=== PATIENT | female | born 1945 | race Two or more races ===

== ENCOUNTER 2024-06-06 10:14 | Outpatient (AMB) | payer OTHER, SELFPAY ==
--- NOTE | 2024-06-06 10:35 | GSCOFFNT_ITS ---
[facility] 06/06/24 10:36 Height 1.6 m Height Method Stated Weight 52.815 kg Weight Measurement Method Standing Scale BMI 20.6 BP 114/67 Blood Pressure Source Automatic Cuff Blood Pressure Location Right Upper Arm Position Sitting Respiration 18 Pulse 78 Pulse Source Monitor Temp 96.9 F Temp Source Temporal Artery Scan Pulse Oximetry (%) 96 Oxygen Delivery Method Room Air Med/Allergies Allergies & Medications Allergies No Known Allergies Allergy (Verified 06/06/24 10:37) Medication Reconciliation loratadine 10 mg tablet 10 mg PO QDAY 01/20/18 [History Confirmed 06/06/24] acetaminophen 500 mg tablet (Tylenol Extra Strength) 500 mg PO TID 11/06/20 [History Confirmed 06/06/24] calcium 600 mg (as carbonate)-vitamin D3 10 mcg (400 unit) tablet (Calcium 600 + D(3)) 1 tab PO BID 02/02/24 [History Confirmed 06/06/24] latanoprost 0.005 % eye drops 1 drp ophthalmic (eye) HS 02/02/24 [History Confirmed 06/06/24] timolol maleate 0.5 % eye drops 1 drp ophthalmic (eye) DAILY 02/02/24 [History Confirmed 06/06/24] docusate sodium 100 mg capsule (Colace) 100 mg PO QDAY PRN constipation #30 caps 02/03/24 [Rx Confirmed 06/06/24] oxycodone-acetaminophen 5 mg-325 mg tablet (Endocet) 1 tab PO Q6H PRN pain #30 tabs 02/03/24 [Rx Confirmed 06/06/24] docusate sodium 50 mg capsule 50 mg PO BID PRN constipation #30 caps 03/22/24 [Rx Confirmed 06/06/24] hydrocortisone acetate 25 mg rectal suppository 25 mg [place] QHS #24 ea 06/06/24 [Rx] [place] Intake Visit Data Collection New Patient or Established: Established Patient (seen at [facility] within 3 years) Reason for Visit:: FOLLOW UP Pain Present Currently: No Pain Scale Used: Tor/Numerical Bunker Worker Required: No PCP or OBGYN visit in last 3 months: Yes Hx Now: No Do You Feel Safe at Home: Yes Authorities Contacted: N/A Smoking Status Smoking Status: Never smoker Immunization / Flu Flu Vaccine in the Last 12 Months: Yes Flu Vaccine Exclusion Criteria: Already Received Past Medical History Past Medical History NEUROLOGIC: Negative Neurological Disorders or Seizures CARDIAC: Positive Cardiac Disorders, Hypercholesterolemia (pt was prescribed meds but not taking them) and Hypotension (INTERMITTENT); Negative Congestive Heart Failure RESPIRATORY: Negative Chronic Obstructive Pulmonary Disease (COPD) GASTROINTESTINAL: Positive Gastrointestinal Disorders, Hemorrhoids and Gastroesophageal Reflux Disease (BLOATING) GENITOURINARY: Negative Genitourinary Disorders or Renal Disease REPRODUCTIVE: Negative Previous Pregnancies MUSCULOSKELETAL: Positive Osteoporosis ENT: Positive Cataracts (bilateral) and Glaucoma ENDOCRINE: Negative Endocrine Disorders, Diabetes Mellitus Type 1 or Diabetes Mellitus Type 2 HEMATOLOGIC: Negative Blood Disorders OTHER HISTORY: Positive Falls, Chicken Pox, Measles and Mumps; Negative Hospitalization, Autoimmune Disease, Shingles, Blood Transfusions, Blood Transfusion Reaction, Anesthesia Reactions or Cancer Family History FAMILY HISTORY: Positive Family Cancer and Family Surgery; Negative Family Psychiatric Problems, Family Respiratory Disorders, Family Cardiac Disorders, Family Gastrointestinal Problems or Family Anesthesia Reaction Social History SMOKING STATUS: Smoking status: Never smoker SECOND HAND EXPOSURE: second hand exposure: No ALCOHOL: Alcohol Intake: Never HOUSING: Housing: House HPI HPI Narrative 79F referred for bleeding internal hemorrhoids s/p THD 02/02 here for planned follow up. Pt reports feeling well with no pain, however she continues to have intermittent episodes of bleeding. She still feels it is better than before surgery but is having to wear pantiliners in case the bleeding occurs. She denies any constipatio or diarrhea, is using preparation H suppositories regularly ROS Review of Systems Systems Reviewed: All systems reviewed, normal except as documented Objective/Exam General General Appearance: alert, cooperative and well groomed Resp Respiratory exam: Absent respiratory distress Assessment & Plan Diagnosis / Problem List (1) Internal hemorrhoids with complication: Status: Acute Assessment & Plan: 79F referred for bleeding internal hemorrhoids s/p THD 02/02 here for planned follow up, with mild ongoing bleeding Plan: Hydrocortisone suppositories F/u in 1 month Advanced Care Planning Advance care planning discussed with:: patient Office Procedures GNS Level of Care Nursing/Assessment Patient Status: Established Patient Nursing Assessment/Reassesment: Medication Reconciliation, Update PMH in EMR and Vital Signs Coordination of Care: Complex Care and Chronic Disease 1-5, Education Complex Pt/Fam, Consent,records obtained, informed consent, Results/Orders obtained and Staff clarify orders Established Patient Charge Established Patient Point Assignment: 95 Established Patient Point Charge: Level 3 (33-115) Patient Portal Questionaires Social History Living Situation History Housing: House Tobacco History Smoking Status: Never smoker Second Hand Smoke Exposure: No Alcohol History Alcohol Intake: Never Domestic Abuse History Do You Feel Safe at Home: Yes Review of Systems Report any current symptoms Only answer those that you have currently: Past Medical History Past Medical History Have you ever been diagnosed with any of the following: Neurological Problems Seizures: No Cardiology Problems Hypercholesterolemia: Yes (pt was prescribed meds but not taking them) Congestive Heart Failure: No Hypotension: Yes (INTERMITTENT) Respiratory Problems Chronic Obstructive Pulmonary Disease (COPD): No Stomache/Intestinal Problems Hemorrhoids: Yes Gastroesophageal Reflux Disease: Yes (BLOATING) Genital/Urinary Problems Renal Disease: No Reproductive Problems Previous Pregnancies: No Musculoskeletal Problems Osteoporosis: Yes Head,Eye,Nose,Throat Problems Cataracts: Yes (bilateral) Glaucoma: Yes Endocrine Problems Diabetes Mellitus Type 1: No Diabetes Mellitus Type 2: No Other Problems Hospitalization: No Autoimmune Disease: No Shingles: No Falls: Yes Blood Transfusions: No Blood Transfusion Reaction: No Anesthesia Reactions: No Chicken Pox: Yes Measles: Yes Mumps: Yes Cancer: No
[2024-06-06 10:36] VITALS: BP 114/67; PULSE 78; RESP 18; TEMP 36.1; O2SAT 96; BMI 20.6
== END 2024-06-06 11:18 | disposition home or self-care (01) ==
PROVIDERS: PCP Family Medicine; Referring Provider Family Medicine; Supervising Provider Surgery; Visit Provider Surgery
DX: Z48.815 Encounter for surgical aftercare following surgery on the digestive system (principal)
CPT/HCPCS: 99213; G0463

== ENCOUNTER 2024-07-06 14:34 | Outpatient (AMB) | payer OTHER, SELFPAY ==
[2024-07-06 14:51] VITALS: BP 132/69; PULSE 77; RESP 18; TEMP 36.4; O2SAT 98; BMI 20.6
--- NOTE | 2024-07-06 14:51 | GSCOFFNT_ITS ---
[facility] 07/06/24 14:51 Height 1.6 m Height Method Stated Weight 52.787 kg Weight Measurement Method Standing Scale BMI 20.6 BP 132/69 H Blood Pressure Source Automatic Cuff Blood Pressure Location Right Upper Arm Position Sitting Respiration 18 Pulse 77 Pulse Source Monitor Temp 97.5 F Temp Source Temporal Artery Scan Pulse Oximetry (%) 98 Oxygen Delivery Method Room Air Med/Allergies Allergies & Medications Allergies No Known Allergies Allergy (Verified 07/06/24 14:52) Medication Reconciliation loratadine 10 mg tablet 10 mg PO QDAY 01/20/18 [History Confirmed 07/06/24] acetaminophen 500 mg tablet (Tylenol Extra Strength) 500 mg PO TID 11/06/20 [History Confirmed 07/06/24] calcium 600 mg (as carbonate)-vitamin D3 10 mcg (400 unit) tablet (Calcium 600 + D(3)) 1 tab PO BID 02/02/24 [History Confirmed 07/06/24] latanoprost 0.005 % eye drops 1 drp ophthalmic (eye) HS 02/02/24 [History Confirmed 07/06/24] timolol maleate 0.5 % eye drops 1 drp ophthalmic (eye) DAILY 02/02/24 [History Confirmed 07/06/24] docusate sodium 100 mg capsule (Colace) 100 mg PO QDAY PRN constipation #30 caps 02/03/24 [Rx Confirmed 07/06/24] oxycodone-acetaminophen 5 mg-325 mg tablet (Endocet) 1 tab PO Q6H PRN pain #30 tabs 02/03/24 [Rx Confirmed 07/06/24] docusate sodium 50 mg capsule 50 mg PO BID PRN constipation #30 caps 03/22/24 [Rx Confirmed 07/06/24] phenylephrine 0.25 %-mineral oil 14 %-petrolatm 74.9 % rectal ointment (Hemorrhoidal(phenyleph-min oil-petrolat)) 1 applic NM QAM #56 grams 06/08/24 [Rx Confirmed 07/06/24] hydrocortisone acetate 25 mg rectal suppository 25 mg [place] QHS #24 ea 07/06/24 [Rx] [place] Intake Visit Data Collection New Patient or Established: Established Patient (seen at [facility] within 3 years) Reason for Visit:: FOLLOW UP Pain Present Currently: No Pain Scale Used: Goodwin-Brooks/Numerical Student Loan Counselor Required: No PCP or OBGYN visit in last 3 months: Yes Hx Now: No Do You Feel Safe at Home: Yes Authorities Contacted: N/A Smoking Status Smoking Status: Never smoker Immunization / Flu Flu Vaccine in the Last 12 Months: Yes Flu Vaccine Exclusion Criteria: Already Received Past Medical History Past Medical History NEUROLOGIC: Negative Neurological Disorders or Seizures CARDIAC: Positive Cardiac Disorders, Hypercholesterolemia (pt was prescribed meds but not taking them) and Hypotension (INTERMITTENT); Negative Congestive Heart Failure RESPIRATORY: Negative Chronic Obstructive Pulmonary Disease (COPD) GASTROINTESTINAL: Positive Gastrointestinal Disorders, Hemorrhoids and Gastroesophageal Reflux Disease (BLOATING) GENITOURINARY: Negative Genitourinary Disorders or Renal Disease REPRODUCTIVE: Negative Previous Pregnancies MUSCULOSKELETAL: Positive Osteoporosis ENT: Positive Cataracts (bilateral) and Glaucoma ENDOCRINE: Negative Endocrine Disorders, Diabetes Mellitus Type 1 or Diabetes Mellitus Type 2 HEMATOLOGIC: Negative Blood Disorders OTHER HISTORY: Positive Falls, Chicken Pox, Measles and Mumps; Negative Hospitalization, Autoimmune Disease, Shingles, Blood Transfusions, Blood Transfusion Reaction, Anesthesia Reactions or Cancer Family History FAMILY HISTORY: Positive Family Cancer and Family Surgery; Negative Family Psychiatric Problems, Family Respiratory Disorders, Family Cardiac Disorders, Family Gastrointestinal Problems or Family Anesthesia Reaction Social History SMOKING STATUS: Smoking status: Never smoker SECOND HAND EXPOSURE: second hand exposure: No ALCOHOL: Alcohol Intake: Never HOUSING: Housing: House HPI HPI Narrative 79F referred for bleeding internal hemorrhoids s/p D 02/02 here for planned follow up. Pt reports she is still having mild intermittent rectal bleeding although it is better compared to before surgery. She is a bit overwhelmed at the moment caring for her who is 89 ROS Review of Systems Systems Reviewed: All systems reviewed, normal except as documented Objective/Exam General General Appearance: alert, cooperative and well groomed Resp Respiratory exam: Absent respiratory distress Assessment & Plan Diagnosis / Problem List (1) Internal hemorrhoids with complication: Status: Acute Assessment & Plan: 79F referred for bleeding internal hemorrhoids s/p THD 02/02 here for planned follow up, recovering well overall Plan: Suppository rx F/u in 4 weeks Advanced Care Planning Advance care planning discussed with:: patient Office Procedures GNS Level of Care Nursing/Assessment Patient Status: Established Patient Nursing Assessment/Reassesment: Medication Reconciliation, Update PMH in EMR and Vital Signs Coordination of Care: Complex Care and Chronic Disease 1-5, Education Complex Pt/Fam, Consent,records obtained, informed consent, Results/Orders obtained and Staff clarify orders Established Patient Charge Established Patient Point Assignment: 95 Established Patient Point Charge: EP Level 3 (80-115) Patient Portal Questionaires Social History Living Situation History Housing: House Tobacco History Smoking Status: Never smoker Second Hand Smoke Exposure: No Alcohol History Alcohol Intake: Never Domestic Abuse History Do You Feel Safe at Home: Yes Review of Systems Report any current symptoms Only answer those that you have currently: Past Medical History Past Medical History Have you ever been diagnosed with any of the following: Neurological Problems Seizures: No Cardiology Problems Hypercholesterolemia: Yes (pt was prescribed meds but not taking them) Congestive Heart Failure: No Hypotension: Yes (INTERMITTENT) Respiratory Problems Chronic Obstructive Pulmonary Disease (COPD): No Stomache/Intestinal Problems Hemorrhoids: Yes Gastroesophageal Reflux Disease: Yes (BLOATING) Genital/Urinary Problems Renal Disease: No Reproductive Problems Previous Pregnancies: No Musculoskeletal Problems Osteoporosis: Yes Head,Eye,Nose,Throat Problems Cataracts: Yes (bilateral) Glaucoma: Yes Endocrine Problems Diabetes Mellitus Type 1: No Diabetes Mellitus Type 2: No Other Problems Hospitalization: No Autoimmune Disease: No Shingles: No Falls: Yes Blood Transfusions: No Blood Transfusion Reaction: No Anesthesia Reactions: No Chicken Pox: Yes Measles: Yes Mumps: Yes Cancer: No
== END 2024-07-06 15:19 | disposition home or self-care (01) ==
LOC: HODSRG 14:34
PROVIDERS: PCP Family Medicine; Referring Provider Family Medicine; Supervising Provider Surgery; Visit Provider Surgery
DX: Z48.815 Encounter for surgical aftercare following surgery on the digestive system (principal)
CPT/HCPCS: 99213; G0463

== ENCOUNTER 2024-08-08 10:55 | Outpatient (AMB) | payer OTHER, SELFPAY ==
[2024-08-08 11:16] VITALS: BP 114/74; PULSE 71; RESP 16; TEMP 36.2; O2SAT 95; BMI 21.7
--- NOTE | 2024-08-08 11:16 | PD.GSCLVISIT ---
[facility] Sign[facility] - [facility] 08/08/24 11:16 Height 1.6 m Height Method Stated Weight 55.508 kg Weight Measurement Method Standing Scale BMI 21.7 BP 114/74 Blood Pressure Source Automatic Cuff Blood Pressure Location Right Upper Arm Position Sitting Respiration 16 Pulse 71 Pulse Source Monitor Temp 97.2 F Temp Source Temporal Artery Scan Pulse Oximetry (%) 95 Oxygen Delivery Method Room Air Med/Allergies Allergies & Medications Allergies No Known Allergies Allergy (Verified 07/06/24 14:52) [place] Intake Visit Data Collection New Patient or Established: Established Patient (seen at [facility] within 3 years) Seen by Clinical Staff ONLY (RN/MA): No Reason for Visit:: HEMORRHOIDS F/U Pain Present Currently: Yes Pain Location: Hip (RT) Pain scale:: 3 Pain Scale Used: Goodwin-Brooks/Numerical Core Measures Abstractor Required: No PCP or OBGYN visit in last 3 months: Yes Smoking Status Smoking Status: Never smoker Immunization / Flu Flu Vaccine in the Last 12 Months: Yes Flu Vaccine Exclusion Criteria: Already Received Past Medical History Past Medical History NEUROLOGIC: Negative Neurological Disorders or Seizures CARDIAC: Positive Cardiac Disorders, Hypercholesterolemia (pt was prescribed meds but not taking them) and Hypotension (INTERMITTENT); Negative Congestive Heart Failure RESPIRATORY: Negative Chronic Obstructive Pulmonary Disease (COPD) GASTROINTESTINAL: Positive Gastrointestinal Disorders, Hemorrhoids and Gastroesophageal Reflux Disease (BLOATING) GENITOURINARY: Negative Genitourinary Disorders or Renal Disease REPRODUCTIVE: Negative Previous Pregnancies MUSCULOSKELETAL: Positive Osteoporosis ENT: Positive Cataracts (bilateral) and Glaucoma ENDOCRINE: Negative Endocrine Disorders, Diabetes Mellitus Type 1 or Diabetes Mellitus Type 2 HEMATOLOGIC: Negative Blood Disorders OTHER HISTORY: Positive Falls, Chicken Pox, Measles and Mumps; Negative Hospitalization, Autoimmune Disease, Shingles, Blood Transfusions, Blood Transfusion Reaction, Anesthesia Reactions or Cancer Family History FAMILY HISTORY: Positive Family Cancer and Family Surgery; Negative Family Psychiatric Problems, Family Respiratory Disorders, Family Cardiac Disorders, Family Gastrointestinal Problems or Family Anesthesia Reaction Social History SMOKING STATUS: Smoking status: Never smoker SECOND HAND EXPOSURE: second hand exposure: No ALCOHOL: Alcohol Intake: Never HOUSING: Housing: House HPI HPI Narrative 79F referred for bleeding internal hemorrhoids s/p THD 02/02 here for planned follow up. Pt reports she is still having intermittent rectal bleeding, it was a fair amount on Aug 02 but overall she still feels better than before surgery and does not want to consider repeat surgery ROS Review of Systems Systems Reviewed: All systems reviewed, normal except as documented Objective/Exam General General Appearance: alert, cooperative and well groomed Resp Respiratory exam: Absent respiratory distress Assessment & Plan Diagnosis / Problem List (1) Internal hemorrhoids with complication: Status: Acute Assessment & Plan: 79F referred for bleeding internal hemorrhoids s/p THD 02/02 here for planned follow up, recovering well overall Advanced Care Planning Advance care planning discussed with:: other Office Procedures GNS Level of Care Nursing/Assessment Patient Status: Established Patient Nursing Assessment/Reassesment: Medication Reconciliation, Update PMH in EMR and Vital Signs Coordination of Care: Complex Care and Chronic Disease 1-5, Education Complex Pt/Fam, 1 Ins Authorization and Staff clarify orders Established Patient Charge Established Patient Point Assignment: 100 Established Patient Point Charge: EP Level 3 (80-115) Patient Portal Questionaires Social History Living Situation History Housing: House Tobacco History Smoking Status: Never smoker Second Hand Smoke Exposure: No Alcohol History Alcohol Intake: Never Review of Systems Report any current symptoms Only answer those that you have currently: Past Medical History Past Medical History Have you ever been diagnosed with any of the following: Neurological Problems Seizures: No Cardiology Problems Hypercholesterolemia: Yes (pt was prescribed meds but not taking them) Congestive Heart Failure: No Hypotension: Yes (INTERMITTENT) Respiratory Problems Chronic Obstructive Pulmonary Disease (COPD): No Stomache/Intestinal Problems Hemorrhoids: Yes Gastroesophageal Reflux Disease: Yes (BLOATING) Genital/Urinary Problems Renal Disease: No Reproductive Problems Previous Pregnancies: No Musculoskeletal Problems Osteoporosis: Yes Head,Eye,Nose,Throat Problems Cataracts: Yes (bilateral) Glaucoma: Yes Endocrine Problems Diabetes Mellitus Type 1: No Diabetes Mellitus Type 2: No Other Problems Hospitalization: No Autoimmune Disease: No Shingles: No Falls: Yes Blood Transfusions: No Blood Transfusion Reaction: No Anesthesia Reactions: No Chicken Pox: Yes Measles: Yes Mumps: Yes Cancer: No
== END 2024-08-08 12:02 | disposition home or self-care (01) ==
LOC: HODSRG 10:55
PROVIDERS: PCP Family Medicine; Referring Provider Family Medicine; Supervising Provider Surgery; Visit Provider Surgery
DX: Z48.815 Encounter for surgical aftercare following surgery on the digestive system (principal)
CPT/HCPCS: 99213; G0463

== ENCOUNTER → 2024-09-07 | Outpatient (CLI) | payer OTHER, SELFPAY ==
--- NOTE | 2024-09-07 | XR_ITS ---
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
== END | disposition home or self-care (01) ==
LOC: CDIM 11:39
PROVIDERS: PCP Family Medicine; Referring Provider Family Medicine; Visit Provider Family Medicine
DX: Z13.820 Encounter for screening for osteoporosis (principal); M25.551 Pain in right hip
CPT/HCPCS: 73502

== ENCOUNTER 2024-09-08 14:13 | Outpatient (AMB) | payer OTHER, SELFPAY ==
[2024-09-08 14:34] VITALS: BP 113/68; PULSE 77; RESP 19; TEMP 36.4; O2SAT 98; BMI 21.1
--- NOTE | 2024-09-08 14:34 | GSCOFFNT_ITS ---
Vital Signs - [facility] 09/08/24 14:34 Height 1.6 m Height Method Stated Weight 54.063 kg Weight Measurement Method Standing Scale BMI 21.1 BP 113/68 Blood Pressure Source Automatic Cuff Blood Pressure Location Left Upper Arm Position Sitting Respiration 19 Pulse 77 Pulse Source Monitor Temp 97.5 F Temp Source Temporal Artery Scan Pulse Oximetry (%) 98 Oxygen Delivery Method Room Air Med/Allergies Allergies & Medications Allergies No Known Allergies Allergy (Verified 09/08/24 14:34) Medication Reconciliation loratadine 10 mg tablet 10 mg PO QDAY 01/20/18 [History Confirmed 09/08/24] acetaminophen 500 mg tablet (Tylenol Extra Strength) 500 mg PO TID 11/06/20 [History Confirmed 09/08/24] calcium 600 mg (as carbonate)-vitamin D3 10 mcg (400 unit) tablet (Calcium 600 + D(3)) 1 tab PO BID 02/02/24 [History Confirmed 09/08/24] latanoprost 0.005 % eye drops 1 drp ophthalmic (eye) HS 02/02/24 [History Confirmed 09/08/24] timolol maleate 0.5 % eye drops 1 drp ophthalmic (eye) DAILY 02/02/24 [History Confirmed 09/08/24] oxycodone-acetaminophen 5 mg-325 mg tablet (Endocet) 1 tab PO Q6H PRN pain #30 tabs 02/03/24 [Rx Confirmed 09/08/24] docusate sodium 50 mg capsule 50 mg PO BID PRN constipation #30 caps 03/22/24 [Rx Confirmed 09/08/24] phenylephrine 0.25 %-mineral oil 14 %-petrolatm 74.9 % rectal ointment (Hemorrhoidal(phenyleph-min oil-petrolat)) 1 applic [place] QAM #56 grams 06/08/24 [Rx Confirmed 09/08/24] hydrocortisone acetate 25 mg rectal suppository 25 mg [place] QHS #24 ea 07/06/24 [Rx Confirmed 09/08/24] docusate sodium 100 mg capsule (Colace) 100 mg PO QDAY PRN constipation #30 caps 09/06/24 [Rx Confirmed 09/08/24] [place] Intake Visit Data Collection New Patient or Established: Established Patient (seen at [facility] within 3 years) Seen by Clinical Staff ONLY (RN/MA): No Reason for Visit:: FOLLOW UP Pain Present Currently: No Special Education Resource Room Teacher Required: No PCP or OBGYN visit in last 3 months: Yes Hx Now: No Do You Feel Safe at Home: Yes Authorities Contacted: N/A Smoking Status Smoking Status: Never smoker Immunization / Flu Flu Vaccine in the Last 12 Months: No Flu Vaccine Exclusion Criteria: No Exclusion Criteria Past Medical History Past Medical History NEUROLOGIC: Negative Neurological Disorders or Seizures CARDIAC: Positive Cardiac Disorders, Hypercholesterolemia (pt was prescribed med s but not taking them) and Hypotension (INTERMITTENT); Negative Congestive Heart Failure RESPIRATORY: Negative Chronic Obstructive Pulmonary Disease (COPD) GASTROINTESTINAL: Positive Gastrointestinal Disorders, Hemorrhoids and Gastroesophageal Reflux Disease (BLOATING) GENITOURINARY: Negative Genitourinary Disorders or Renal Disease REPRODUCTIVE: Negative Previous Pregnancies MUSCULOSKELETAL: Positive Osteoporosis ENT: Positive Cataracts (bilateral) and Glaucoma ENDOCRINE: Negative Endocrine Disorders, Diabetes Mellitus Type 1 or Diabetes Mellitus Type 2 HEMATOLOGIC: Negative Blood Disorders OTHER HISTORY: Positive Falls, Chicken Pox, Measles and Mumps; Negative Hospitalization, Autoimmune Disease, Shingles, Blood Transfusions, Blood Transfusion Reaction, Anesthesia Reactions or Cancer Family History FAMILY HISTORY: Positive Family Cancer and Family Surgery; Negative Family Psychiatric Problems, Family Respiratory Disorders, Family Cardiac Disorders, Family Gastrointestinal Problems or Family Anesthesia Reaction Social History SMOKING STATUS: Smoking status: Never smoker SECOND HAND EXPOSURE: second hand exposure: No ALCOHOL: Alcohol Intake: Never HOUSING: Housing: House HPI HPI Narrative 79F referred for bleeding internal hemorrhoids s/p D 02/02 here for planned follow up. Pt reports having minimal bleeding, no concerns at the moment ROS Review of Systems Systems Reviewed: All systems reviewed, normal except as documented Objective/Exam General General Appearance: alert, cooperative and well groomed Resp Respiratory exam: Absent respiratory distress Assessment & Plan Diagnosis / Problem List (1) Internal hemorrhoids with complication: Status: Acute Assessment & Plan: 79F referred for bleeding internal hemorrhoids s/p D 02/02 here for planned follow up, recovering well overall Advanced Care Planning Advance care planning discussed with:: patient Office Procedures GNS Level of Care Nursing/Assessment Patient Status: Established Patient Nursing Assessment/Reassesment: Medication Reconciliation, Update PMH in EMR and Vital Signs Coordination of Care: Complex Care and Chronic Disease 1-5, Consent,records obtained, informed consent, Education Simp Pt/Fam, Results/Orders obtained and Staff clarify orders Established Patient Charge Established Patient Point Assignment: 90 Established Patient Point Charge: Level 3 (80-115) Patient Portal Questionaires Social History Living Situation History Housing: House Tobacco History Smoking Status: Never smoker Second Hand Smoke Exposure: No Alcohol History Alcohol Intake: Never Domestic Abuse History Do You Feel Safe at Home: Yes Review of Systems Report any current symptoms Only answer those that you have currently: Past Medical History Past Medical History Have you ever been diagnosed with any of the following: Neurological Problems Seizures: No Cardiology Problems Hypercholesterolemia: Yes (pt was prescribed meds but not taking them) Congestive Heart Failure: No Hypotension: Yes (INTERMITTENT) Respiratory Problems Chronic Obstructive Pulmonary Disease (COPD): No Stomache/Intestinal Problems Hemorrhoids: Yes Gastroesophageal Reflux Disease: Yes (BLOATING) Genital/Urinary Problems Renal Disease: No Reproductive Problems Previous Pregnancies: No Musculoskeletal Problems Osteoporosis: Yes Head,Eye,Nose,Throat Problems Cataracts: Yes (bilateral) Glaucoma: Yes Endocrine Problems Diabetes Mellitus Type 1: No Diabetes Mellitus Type 2: No Other Problems Hospitalization: No Autoimmune Disease: No Shingles: No Falls: Yes Blood Transfusions: No Blood Transfusion Reaction: No Anesthesia Reactions: No Chicken Pox: Yes Measles: Yes Mumps: Yes Cancer: No
== END 2024-09-08 14:50 | disposition home or self-care (01) ==
LOC: HODSRG 14:13
PROVIDERS: PCP Family Medicine; Referring Provider Family Medicine; Supervising Provider Surgery; Visit Provider Surgery
DX: Z48.815 Encounter for surgical aftercare following surgery on the digestive system (principal)
CPT/HCPCS: 99213; G0463

== ENCOUNTER → 2024-09-19 | Outpatient (CLI) | payer OTHER, SELFPAY ==
[2024-09-19 13:21] LABS: Basophils % (Auto) 1 % (0-2.5); Eosinophils # (Auto) 0.1 Thou/mm3 (0.0-0.5); Eosinophils % (Auto) 1 % (0-10); Hematocrit 35.2 % (36.0-46.0); Hemoglobin 11.1 g/dL (12.0-16.0); Immature Granulocytes % (Auto) 0 % (0-0); Immature Granulocytes Auto 0.02 Thou/mm3 (0.00-0.00); Lymphocytes # (Auto) 1.5 Thou/mm3 (1.0-4.8); Lymphocytes % (Auto) 20 % (10-50); Mean Corpuscular HGB Conc 31.5 g/dl (31.0-37.0); Mean Corpuscular Hemoglobin 24.3 pg (25.0-35.0); Mean Corpuscular Volume 77 fL (80-100); Monocytes # (Auto) 0.9 Thou/mm3 (0.0-0.8); Monocytes % (Auto) 12 % (0-12); Neutrophils # (Auto) 4.8 Thou/mm3 (1.8-7.7); Neutrophils % (Auto) 66 % (37-80); Nucleated Red Blood Cell % 0 /100 WBC (0); Platelet Count 312 Thou/mm3 (140-440); RDW Standard Deviation 62.8 fL (36.4-46.3); Red Blood Count 4.57 Miln/mm3 (4.00-5.20); White Blood Count 7.3 Thou/mm3 (3.6-11.0)
[2024-09-19 13:43] LABS: Anion Gap 8 (7-16); BUN/Creatinine Ratio 38 Ratio (12-20); Blood Urea Nitrogen 23 mg/dL (9-23); Calcium 9.3 mg/dL (8.3-10.6); Carbon Dioxide 27.8 mMol/L (20.0-31.0); Chloride 106 mMol/L (98-107); Creatinine (Component) 0.6 mg/dL (0.6-1.3); Glucose 81 mg/dL (74-106); Osmolality,Calculated 285 (275-295); Potassium 4.3 mMol/L (3.4-5.1); Sodium 142 mMol/L (136-145); eGFR > 60 See Note
== END | disposition home or self-care (01) ==
PROVIDERS: PCP Family Medicine; Referring Provider Family Medicine; Visit Provider Family Medicine
DX: M89.50 Osteolysis, unspecified site (principal)
CPT/HCPCS: 36415; 80048; 82105; 85025

== ENCOUNTER → 2024-10-05 | Outpatient (CLI) | payer OTHER, SELFPAY ==
--- NOTE | 2024-10-05 15:30 | XR_ITS ---
Examination: MRI pelvis with intravenous contrast. MRI pelvis without intravenous contrast. Date and time of exam: October 05, 2024 1544 hrs. Indications: Right-sided pelvic pain right hip pain beginning one year ago left-sided pelvic pain beginning one week ago, left hip exam September 07, 2024 suspicious for 20 mm osteolytic lesion right femoral neck Technique: Multiple axial, sagittal and coronal sections of the pelvis obtained. Transverse images, TR 6020, TE 107. T1 weighted transverse images, TR 582, TE 9.5. T2-weighted sagittal images, TR 4000, TE 105. T2-weighted sagittal images, TR 4000, TE 5. Coronal images, TR 4210, TE 107. Axial and coronal images are obtained post 12 cc intravenous injection, gadolinium. 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
== END | disposition home or self-care (01) ==
PROVIDERS: PCP Family Medicine; Referring Provider Family Medicine; Visit Provider Family Medicine
DX: M25.551 Pain in right hip (principal); M89.50 Osteolysis, unspecified site
CPT/HCPCS: 72197; A9579

== ENCOUNTER 2024-10-06 13:19 | Outpatient (AMB) | payer OTHER, SELFPAY ==
[2024-10-06 13:28] VITALS: BP 147/79; PULSE 74; RESP 18; TEMP 36.5; O2SAT 98; BMI 20.2
--- NOTE | 2024-10-06 13:28 | PD.GSCLVISIT ---
[facility] Signs - [facility] 10/06/24 13:28 Height 1.6 m Height Method Stated Weight 51.71 kg Weight Measurement Method Standing Scale BMI 20.2 BP 147/79 H Blood Pressure Source Automatic Cuff Blood Pressure Location Left Upper Arm Position Sitting Respiration 18 Pulse 74 Pulse Source Monitor Temp 97.7 F Temp Source Temporal Artery Scan Pulse Oximetry (%) 98 Oxygen Delivery Method Room Air Med/Allergies Allergies & Medications Allergies No Known Allergies Allergy (Verified 10/06/24 13:30) Medication Reconciliation loratadine 10 mg tablet 10 mg PO QDAY 01/20/18 [History Confirmed 10/06/24] acetaminophen 500 mg tablet (Tylenol Extra Strength) 500 mg PO TID 11/06/20 [History Confirmed 10/06/24] calcium 600 mg (as carbonate)-vitamin D3 10 mcg (400 unit) tablet (Calcium 600 + D(3)) 1 tab PO BID 02/02/24 [History Confirmed 10/06/24] latanoprost 0.005 % eye drops 1 drp ophthalmic (eye) HS 02/02/24 [History Confirmed 10/06/24] timolol maleate 0.5 % eye drops 1 drp ophthalmic (eye) DAILY 02/02/24 [History Confirmed 10/06/24] oxycodone-acetaminophen 5 mg-325 mg tablet (Endocet) 1 tab PO Q6H PRN pain #30 tabs 02/03/24 [Rx Confirmed 10/06/24] docusate sodium 50 mg capsule 50 mg PO BID PRN constipation #30 caps 03/22/24 [Rx Confirmed 10/06/24] phenylephrine 0.25 %-mineral oil 14 %-petrolatm 74.9 % rectal ointment (Hemorrhoidal(phenyleph-min oil-petrolat)) 1 applic [place] QAM #56 grams 06/08/24 [Rx Confirmed 10/06/24] hydrocortisone acetate 25 mg rectal suppository 25 mg [place] QHS #24 ea 07/06/24 [Rx Confirmed 10/06/24] docusate sodium 100 mg capsule (Colace) 100 mg PO QDAY PRN constipation #30 caps 09/06/24 [Rx Confirmed 10/06/24] MA Intake Visit Data Collection New Patient or Established: Established Patient (seen at [facility] within 3 years) Seen by Clinical Staff ONLY (RN/MA): No Reason for Visit:: f/u on hemorrhoid Pain Present Currently: No Pain scale:: 0 Analytical Laboratory Technician Required: No PCP or OBGYN visit in last 3 months: No Do You Feel Safe at Home: Yes Authorities Contacted: N/A Smoking Status Smoking Status: Never smoker Immunization / Flu Flu Vaccine in the Last 12 Months: Yes Flu Vaccine Exclusion Criteria: Already Received Past Medical History Past Medical History NEUROLOGIC: Negative Neurological Disorders or Seizures CARDIAC: Positive Cardiac Disorders, Hypercholesterolemia (pt was prescribed meds but not taking them) and Hypotension (INTERMITTENT); Negative Congestive Heart Failure RESPIRATORY: Negative Chronic Obstructive Pulmonary Disease (COPD) GASTROINTESTINAL: Positive Gastrointestinal Disorders, Hemorrhoids and Gastroesophageal Reflux Disease (BLOATING) GENITOURINARY: Negative Genitourinary Disorders or Renal Disease REPRODUCTIVE: Negative Previous Pregnancies MUSCULOSKELETAL: Positive Osteoporosis ENT: Positive Cataracts (bilateral) and Glaucoma ENDOCRINE: Negative Endocrine Disorders, Diabetes Mellitus Type 1 or Diabetes Mellitus Type 2 HEMATOLOGIC: Negative Blood Disorders OTHER HISTORY: Positive Falls, Chicken Pox, Measles and Mumps; Negative Hospitalization, Autoimmune Disease, Shingles, Blood Transfusions, Blood Transfusion Reaction, Anesthesia Reactions or Cancer Family History FAMILY HISTORY: Positive Family Cancer and Family Surgery; Negative Family Psychiatric Problems, Family Respiratory Disorders, Family Cardiac Disorders, Family Gastrointestinal Problems or Family Anesthesia Reaction Social History SMOKING STATUS: Smoking status: Never smoker SECOND HAND EXPOSURE: second hand exposure: No ALCOHOL: Alcohol Intake: Never HOUSING: Housing: House HPI HPI Narrative 79F referred for bleeding internal hemorrhoids s/p D 02/02 here for planned follow up. Pt reports feeling well overall and states she has had no bleeding for the past few weeks ROS Review of Systems Systems Reviewed: All systems reviewed, normal except as documented Objective/Exam General General Appearance: alert, cooperative and well groomed Resp Respiratory exam: Absent respiratory distress Assessment & Plan Diagnosis / Problem List (1) Internal hemorrhoids with complication: Status: Acute Assessment & Plan: 79F referred for bleeding internal hemorrhoids s/p D 02/02 here for planned follow up, recovering well Advanced Care Planning Advance care planning discussed with:: other Patient Portal Questionaires Social History Living Situation History Housing: House Tobacco History Smoking Status: Never smoker Second Hand Smoke Exposure: No Alcohol History Alcohol Intake: Never Domestic Abuse History Do You Feel Safe at Home: Yes Review of Systems Report any current symptoms Only answer those that you have currently: Past Medical History Past Medical History Have you ever been diagnosed with any of the following: Neurological Problems Seizures: No Cardiology Problems Hypercholesterolemia: Yes (pt was prescribed meds but not taking them) Congestive Heart Failure: No Hypotension: Yes (INTERMITTENT) Respiratory Problems Chronic Obstructive Pulmonary Disease (COPD): No Stomache/Intestinal Problems Hemorrhoids: Yes Gastroesophageal Reflux Disease: Yes (BLOATING) Genital/Urinary Problems Renal Disease: No Reproductive Problems Previous Pregnancies: No Musculoskeletal Problems Osteoporosis: Yes Head,Eye,Nose,Throat Problems Cataracts: Yes (bilateral) Glaucoma: Yes Endocrine Problems Diabetes Mellitus Type 1: No Diabetes Mellitus Type 2: No Other Problems Hospitalization: No Autoimmune Disease: No Shingles: No Falls: Yes Blood Transfusions: No Blood Transfusion Reaction: No Anesthesia Reactions: No Chicken Pox: Yes Measles: Yes Mumps: Yes Cancer: No
== END 2024-10-06 13:44 | disposition home or self-care (01) ==
LOC: HODSRG 13:19
PROVIDERS: PCP Family Medicine; Referring Provider Family Medicine; Supervising Provider Surgery; Visit Provider Surgery
DX: K64.8 Other hemorrhoids (principal)
CPT/HCPCS: 99213; G0463

== ENCOUNTER → 2024-10-19 | Outpatient (CLI) | payer OTHER, SELFPAY ==
--- NOTE | 2024-10-19 13:30 | XR_ITS ---
Examination: Screening digital mammography, bilateral Computer aided detection 3-D breast Tomosynthesis, bilateral Date and time of exam: 10/19/2024, 2:47 PM Comparisons: August 2019, September 2022 Indications: Screening Technique: Nonmagnified MLO, CC views of the breasts to been obtained, reconstructed from 3-D Tomosynthesis images. R2 computer aided detection program utilized for evaluation of suspicious masses and/or abnormal calcifications. 3-D Tomosynthesis images obtained. Technologist: Findings: The breasts are heterogeneously dense, which may obscure small masses. No evidence of abnormal masses or suspicious calcifications. Impression: BI-RADS category 1: Negative findings (within normal) Recommend 1 year follow-up mammogram
--- NOTE | 2024-10-19 13:35 | XR_ITS ---
Examination: Bone densitometry Date and time of exam:October 19, 2024 at 1403 hrs. Indications: Menopause age 40 Technique: Lumbar spine and hip total bone mineralization values of an calculated. Peak reference and age match control results have been displayed. Findings: Lumbar spine total bone mineralization is1.406 gm/cm2. This is 0.0 standard deviations at peak reference. This is 2.7 standard deviations above age-matched controls. Hip total bone mineralization is 0.948 gm/cm2 This is 1.1 standard deviations below peak reference. This is 1.9 standard deviations above age-matched controls Impression: There is normal mineralization based on lumbar spine measurements. There is osteopenia based on hip measurements is decreased 0.1% compared with September 16, 2022 Lumbar mineralization is decreased 0.1% compared with September 16, 2022. Hip mineralization is decreased 0.3% compared with September 16, 2022
== END | disposition home or self-care (01) ==
LOC: CDIM 13:33
PROVIDERS: Referring Provider Family Medicine; Visit Provider Family Medicine
DX: Z12.31 Encounter for screening mammogram for malignant neoplasm of breast (principal); R92.313 Mammographic fatty tissue density, bilateral breasts; Z13.820 Encounter for screening for osteoporosis; M85.88 Other specified disorders of bone density and structure, other site
CPT/HCPCS: 77063; 77067; 77080

== ENCOUNTER 2024-11-07 13:02 | Outpatient (AMB) | payer OTHER, SELFPAY ==
[2024-11-07 13:11] VITALS: BP 127/79; PULSE 76; RESP 19; TEMP 36.4; O2SAT 97; BMI 20.2
--- NOTE | 2024-11-07 13:11 | PD.GSCLVISIT ---
Vital Signs - [facility] 11/07/24 13:11 Height 1.6 m Height Method Stated Weight 51.88 kg Weight Measurement Method Standing Scale BMI 20.2 BP 127/79 Blood Pressure Source Automatic Cuff Blood Pressure Location Left Upper Arm Position Sitting Respiration 19 Pulse 76 Pulse Source Monitor Temp 97.5 F Temp Source Temporal Artery Scan Pulse Oximetry (%) 97 Oxygen Delivery Method Room Air Med/Allergies Allergies & Medications Allergies No Known Allergies Allergy (Verified 11/07/24 13:13) Medication Reconciliation loratadine 10 mg tablet 10 mg PO QDAY 01/20/18 [History Confirmed 11/07/24] acetaminophen 500 mg tablet (Tylenol Extra Strength) 500 mg PO TID 11/06/20 [History Confirmed 11/07/24] calcium 600 mg (as carbonate)-vitamin D3 10 mcg (400 unit) tablet (Calcium 600 + D(3)) 1 tab PO BID 02/02/24 [History Confirmed 11/07/24] latanoprost 0.005 % eye drops 1 drp ophthalmic (eye) HS 02/02/24 [History Confirmed 11/07/24] timolol maleate 0.5 % eye drops 1 drp ophthalmic (eye) DAILY 02/02/24 [History Confirmed 11/07/24] oxycodone-acetaminophen 5 mg-325 mg tablet (Endocet) 1 tab PO Q6H PRN pain #30 tabs 02/03/24 [Rx Confirmed 11/07/24] docusate sodium 50 mg capsule 50 mg PO BID PRN constipation #30 caps 03/22/24 [Rx Confirmed 11/07/24] phenylephrine 0.25 %-mineral oil 14 %-petrolatm 74.9 % rectal ointment (Hemorrhoidal(phenyleph-min oil-petrolat)) 1 applic [place] QAM #56 grams 06/08/24 [Rx Confirmed 11/07/24] docusate sodium 100 mg capsule (Colace) 100 mg PO QDAY PRN constipation #30 caps 09/06/24 [Rx Confirmed 11/07/24] hydrocortisone acetate 25 mg rectal suppository 25 mg [place] QHS #24 ea 10/17/24 [Rx Confirmed 11/07/24] MA Intake Visit Data Collection New Patient or Established: Established Patient (seen at [facility] within 3 years) Seen by Clinical Staff ONLY (RN/MA): No Reason for Visit:: 1 MONTH F/U Pain Present Currently: No PCP or OBGYN visit in last 3 months: Yes Hx Now: No Do You Feel Safe at Home: Yes Authorities Contacted: N/A Smoking Status Smoking Status: Never smoker Immunization / Flu Flu Vaccine in the Last 12 Months: No Flu Vaccine Exclusion Criteria: No Exclusion Criteria Past Medical History Past Medical History NEUROLOGIC: Negative Neurological Disorders or Seizures CARDIAC: Positive Cardiac Disorders, Hypercholesterolemia (pt was prescribed meds but not taking them) and Hypotension (INTERMITTENT); Negative Congestive Heart Failure RESPIRATORY: Negative Chronic Obstructive Pulmonary Disease (COPD) GASTROINTESTINAL: Positive Gastrointestinal Disorders, Hemorrhoids and Gastroesophageal Reflux Disease (BLOATING) GENITOURINARY: Negative Genitourinary Disorders or Renal Disease REPRODUCTIVE: Negative Previous Pregnancies MUSCULOSKELETAL: Positive Osteoporosis ENT: Positive Cataracts (bilateral) and Glaucoma ENDOCRINE: Negative Endocrine Disorders, Diabetes Mellitus Type 1 or Diabetes Mellitus Type 2 HEMATOLOGIC: Negative Blood Disorders OTHER HISTORY: Positive Falls, Chicken Pox, Measles and Mumps; Negative Hospitalization, Autoimmune Disease, Shingles, Blood Transfusions, Blood Transfusion Reaction, Anesthesia Reactions or Cancer Family History FAMILY HISTORY: Positive Family Cancer and Family Surgery; Negative Family Psychiatric Problems, Family Respiratory Disorders, Family Cardiac Disorders, Family Gastrointestinal Problems or Family Anesthesia Reaction Social History SMOKING STATUS: Smoking status: Never smoker SECOND HAND EXPOSURE: second hand exposure: No ALCOHOL: Alcohol Intake: Never HOUSING: Housing: House HPI HPI Narrative 79F referred for bleeding internal hemorrhoids s/p D 02/02 here for planned follow up. Pt reports feeling well overall with no recent bleeding, no pain or itching. She is managing her BMs with OTC stool softeners and is not having any straining or diarrhea ROS Review of Systems Systems Reviewed: All systems reviewed, normal except as documented Objective/Exam General General Appearance: alert, cooperative and well groomed Resp Respiratory exam: Absent respiratory distress Assessment & Plan Diagnosis / Problem List (1) Internal hemorrhoids with complication: Status: Acute Assessment & Plan: 79F referred for bleeding internal hemorrhoids s/p D 02/02, recovering well with no current symptoms. Pt had been preferring to have regular follow up previously but now feels that her symptoms are well-controlled, and she will reach out with any concerns or questions Advanced Care Planning Advance care planning discussed with:: patient Office Procedures GNS Level of Care Nursing/Assessment Patient Status: Established Patient Nursing Assessment/Reassesment: Medication Reconciliation, Update PMH in EMR and Vital Signs Coordination of Care: Complex Care and Chronic Disease 1-5, Consent,records obtained, informed consent, Education Simp Pt/Fam, Results/Orders obtained and Staff clarify orders Established Patient Charge Established Patient Point Assignment: 90 Established Patient Point Charge: Level 3 (80-115) Patient Portal Questionaires Social History Living Situation History Housing: House Tobacco History Smoking Status: Never smoker Second Hand Smoke Exposure: No Alcohol History Alcohol Intake: Never Domestic Abuse History Do You Feel Safe at Home: Yes Review of Systems Report any current symptoms Only answer those that you have currently: Past Medical History Past Medical History Have you ever been diagnosed with any of the following: Neurological Problems Seizures: No Cardiology Problems Hypercholesterolemia: Yes (pt was prescribed meds but not taking them) Congestive Heart Failure: No Hypotension: Yes (INTERMITTENT) Respiratory Problems Chronic Obstructive Pulmonary Disease (COPD): No Stomache/Intestinal Problems Hemorrhoids: Yes Gastroesophageal Reflux Disease: Yes (BLOATING) Genital/Urinary Problems Renal Disease: No Reproductive Problems Previous Pregnancies: No Musculoskeletal Problems Osteoporosis: Yes Head,Eye,Nose,Throat Problems Cataracts: Yes (bilateral) Glaucoma: Yes Endocrine Problems Diabetes Mellitus Type 1: No Diabetes Mellitus Type 2: No Other Problems Hospitalization: No Autoimmune Disease: No Shingles: No Falls: Yes Blood Transfusions: No Blood Transfusion Reaction: No Anesthesia Reactions: No Chicken Pox: Yes Measles: Yes Mumps: Yes Cancer: No
== END 2024-11-07 13:18 | disposition home or self-care (01) ==
LOC: HODSRG 13:02
PROVIDERS: PCP Family Medicine; Referring Provider Family Medicine; Supervising Provider Surgery; Visit Provider Surgery
DX: Z48.815 Encounter for surgical aftercare following surgery on the digestive system (principal)
CPT/HCPCS: 99213; G0463

== ENCOUNTER → 2024-12-23 | Outpatient (CLI) | payer OTHER, SELFPAY ==
--- NOTE | 2024-12-23 11:27 | XR_ITS ---
Examination: Lumbar spine, 5 views Technique: Lumbar spine AP, lateral, coned lateral lower lumbar spine, bilateral obliques 5 views Exam date and time: December 23, 2024 1240 hours INDICATIONS: Patient fell one week ago with injury to lower back, lower back pain. FINDINGS: Significant osteopenia Grade 1 anterolisthesis L4 on L5 No acute lumbar fracture Advanced disc narrowing L1-L2 IMPRESSION: No acute lumbar fracture
== END | disposition home or self-care (01) ==
LOC: SDIM 11:19
PROVIDERS: PCP Family Medicine; Referring Provider Family Medicine; Visit Provider Family Medicine
DX: S39.92XA Unspecified injury of lower back, initial encounter (principal); W19.XXXA Unspecified fall, initial encounter
CPT/HCPCS: 72110

== ENCOUNTER → 2025-06-05 | Outpatient (CLI) | payer OTHER, SELFPAY ==
[2025-06-05 10:31] LABS: Basophils # (Auto) 0.0 Thou/mm3 (0.0-0.2); Basophils % (Auto) 1 % (0-2.5); Eosinophils # (Auto) 0.1 Thou/mm3 (0.0-0.5); Eosinophils % (Auto) 2 % (0-10); Hematocrit 39.3 % (36.0-46.0); Hemoglobin 12.8 g/dL (12.0-16.0); Immature Granulocytes Auto 0.02 Thou/mm3 (0.00-0.00); Lymphocytes # (Auto) 1.3 Thou/mm3 (1.0-4.8); Lymphocytes % (Auto) 27 % (10-50); Mean Corpuscular HGB Conc 32.6 g/dl (31.0-37.0); Mean Corpuscular Hemoglobin 31.2 pg (25.0-35.0); Mean Corpuscular Volume 96 fL (80-100); Monocytes # (Auto) 0.5 Thou/mm3 (0.0-0.8); Monocytes % (Auto) 10 % (0-12); Neutrophils # (Auto) 3.0 Thou/mm3 (1.8-7.7); Neutrophils % (Auto) 60 % (37-80); Nucleated Red Blood Cell # 0.00 Thou/mm3 (0.00-0.00); Nucleated Red Blood Cell % 0 /100 WBC (0); Platelet Count 228 Thou/mm3 (140-440); RDW Standard Deviation 50.1 fL (36.4-46.3); Red Blood Count 4.10 Miln/mm3 (4.00-5.20); White Blood Count 5.0 Thou/mm3 (3.6-11.0)
[2025-06-05 10:44] LABS: Glucose Estimated Average 117 mg/dL (80-131); Hemoglobin A1C 5.7 % Hgb (4.8-6.0)
[2025-06-05 10:54] LABS: Ferritin 29 ng/mL (7.3-270.7); Iron 65 mcg/dL (50-170); Percent Iron Saturation 17 % (20-55); Total Iron Binding Capacity 366 mcg/dL (250-425); Unsaturated Iron Binding 301 (225-295)
[2025-06-05 10:55] LABS: Vitamin B12 434 pg/mL (211-911)
[2025-06-05 11:02] LABS: Alanine Aminotransferase 9 U/L (10-49); Albumin, Serum 4.8 gm/dL (3.4-4.8); Albumin/Globulin Ratio 2.0 (1.2-2.2); Alkaline Phosphatase 109 U/L (46-116); Anion Gap 11 (7-16); Aspartate Amino Transferase 22 U/L (0-34); BUN/Creatinine Ratio 25 Ratio (12-20); Bilirubin,Total 0.4 mg/dL (0.3-1.2); Blood Urea Nitrogen 15 mg/dL (9-23); Calcium 9.1 mg/dL (8.3-10.6); Calcium (Corrected) 9.1 mg/dL (8.5-10.1); Carbon Dioxide 27.0 mMol/L (20.0-31.0); Cardiac Risk Estimate 3.2 RATIO (3.7-5.6); Chloride 106 mMol/L (98-107); Cholesterol 224 mg/dL (132-200); Creatinine (Component) 0.6 mg/dL (0.6-1.3); Globulin 2.4 gm/dL (2.3-3.5); Glucose 91 mg/dL (74-106); HDL Cholesterol 70 mg/dL (40-60); LDL Cholesterol,Calculated 127 mg/dL (0-130); Osmolality,Calculated 287 (275-295); Potassium 3.8 mMol/L (3.4-5.1); Sodium 144 mMol/L (136-145); Thyroid Stimulating Hormone 2.37 uIU/mL (0.55-4.78); Total Protein 7.2 gm/dL (5.7-8.2); Triglycerides 136 mg/dL (30-150); eGFR > 60 See Note
== END | disposition home or self-care (01) ==
LOC: COPL 09:27
PROVIDERS: PCP Family Medicine; Referring Provider Family Medicine; Visit Provider Family Medicine
DX: D64.9 Anemia, unspecified (principal); E78.2 Mixed hyperlipidemia
CPT/HCPCS: 36415; 80053; 80061; 82607; 82728; 83036; 83540; 83550; 84443; 85025